=== PATIENT | male | born 1995 | race Caucasian/White ===

== ENCOUNTER 2017-05-10 14:31 | Emergency (ER) | payer OTHER ==
[2017-05-10 14:37] VITALS: BP 133/73; PULSE 52; TEMP 98.1; BMI 25.8
[2017-05-10] MEDS ORDERED: ACETAMINOPHEN 325 MG TABLET (FP) PO ONE (14:59)
--- NOTE | 2017-05-10 15:06 | PDOC ---
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 The patient states he was standing with his back towards a wood beam which was leaning against a wall. He states the wood beam fell, striking him in the head. He denies wearing a hard hat. The patient reports falling to the ground, but can not recall losing consciousness. He reports when he got off of the floor he became dizzy, noticed his nose was bleeding, and appreciated pain to the area surrounding his nose. He also reports an abrasion on his face. He states he has been consistently dizzy since the accident. He reports the nasal bleeding stopped prior to his ED arrival. He denies neck pain, back pain, or blurred vision. He denies chest pain, shortness of breath, headache. He denies fever, chills, nausea, vomit, diarrhea and constipation. He denies dysuria, frequency, urgency and hematuria. Allergies: NKDA Social history: Pt denies toxic habits <Susanna Mike - Last Filed: 05/10/17 17:07> - General Chief Complaint: Injury Stated Complaint: INJURY Time Seen by Provider: 05/10/17 14:52 Past History - Past Medical History Anemia: No Asthma: Yes Cancer: No Cardiac Disorders: No CVA: No COPD: No CHF: No Dementia: No Diabetes: No GI Disorders: No Disorders: No HTN: No Hypercholesterolemia: No Kidney Stones: No Liver Disease: No Suicide Attempt (Hx): No Seizures: No Thyroid Disease: No - Surgical History Abdominal Surgery: No Appendectomy: No Cardiac Surgery: No Cholecystectomy: No Lung Surgery: No Neurologic Surgery: No Orthopedic Surgery: No - Psycho/Social/Smoking Cessation Hx Anxiety: No Suicidal Ideation: No Smoking History: Never smoked Have you smoked in the past 12 months: Yes Number of Cigarettes Smoked Daily: 7 'Breaking Loose' booklet given: 08/17/15 Hx Alcohol Use: No Drug/Substance Use Hx: No Substance Use Type: Heroin Hx Substance Use Treatment: Yes <Joel Ewing - Last Filed: 05/10/17 16:31> <DiamantewilSusanna madden - Last Filed: 05/10/17 17:07> - Past Medical History Allergies/Adverse Reactions: Allergies Allergy/AdvReac Type Severity Reaction Status Date / Time fish derived Allergy Mild Swelling Verified 08/17/15 18:29 shellfish derived Allergy Mild Swelling Verified 08/17/15 18:29 No Known Drug Allergies Allergy Verified 08/17/15 18:29 seafood Allergy Mild Swelling Uncoded 08/17/15 17:16 Home Medications: Ambulatory Orders Albuterol Sulfate Inhaler - [Ventolin Hfa Inhaler -] 1 - 2 inh PO QID PRN Ondansetron [Zofran -] 4 mg PO TID PRN #14 tablet 05/10/17 Trauma Specific PMHX - Complaint Specific PMHX Arthritis: No <Joel Ewing - Last Filed: 05/10/17 16:31> Review of Systems - Review of Systems Able to Perform ROS?: Yes Comments:: 05/10/17 17:06 CONSTITUTIONAL: No reported: Fever, Chills, Diaphoresis, Generalized Weakness, Malaise, Loss of Appetite HEENT: (+) facial pain surrounding nose. No reported: Rhinorrhea, Nasal Congestion, Throat Pain, Throat Swelling, Difficulty Swallowing, Mouth Swelling, Ear Pain, Eye Pain, Visual Changes CARDIOVASCULAR: No reported: Chest Pain, Syncope, Palpitations, Irregular Heart Rate, Lightheadedness, Peripheral Edema RESPIRATORY: No reported: Cough, Shortness of Breath, SOB with Exertion, Orthopnea, Wheezing , Stridor, Hemoptysis GASTROINTESTINAL: No reported: Abdominal pain, Abdominal Distension, Nausea, Vomiting, Diarrhea, Constipation, Melena, Hematochezia GENITOURINARY: No reported: Dysuria, Frequency, Urgency, Hesitancy, Flank Pain, Genital Pain MUSCULOSKELETAL: No reported: Myalgia, Arthralgia, Joint Swelling, Back pain, Neck Pain SKIN: No reported: Rash, Itching, Pallor HEMEATOLOGIC/IMMUNOLOGIC: No reported: Easy Bleeding, Easy Bruising, Lymphadenopathy, Frequent infections ENDOCRINE: No reported: Unexplained Weight Gain, Unexplained Weight Loss, Heat Intolerance , Cold Intolerance NEUROLOGIC: (+) Dizziness. No reported: Headache, Focal Weakness, Paresthesias, Lightheadedness, Unsteady Gait, Seizure, Mental Status Changes, Incontinence PSYCHIATRIC: No reported: Anxiety, Depression <Susanna Mike - Last Filed: 05/10/17 17:07> *Physical Exam - Vital Signs Last Vital Signs Temp Pulse Resp BP Pulse Ox 98.1 F 52 L 18 133/73 100 05/10/17 14:34 05/10/17 14:34 05/10/17 14:34 05/10/17 14:34 05/10/17 14:34 <Joel Ewing - Last Filed: 05/10/17 16:31> - Vital Signs Last Vital Signs Temp Pulse Resp BP Pulse Ox 98.1 F 52 L 18 133/73 100 05/10/17 14:34 05/10/17 14:34 05/10/17 14:34 05/10/17 14:34 05/10/17 14:34 - Physical Exam Comments: 05/10/17 17:06 GENERAL: The patient is awake, alert, and fully oriented, Nontoxic - in no acute distress. HEAD: linear abrasion on vertex of scalp, Normocephalic, EYES: Pupils symmetric and reactive to light 3mm, extraocular movements intact, sclera anicteric, conjunctiva clear. ENT: Normal voice, Moist mucous membranes, abrasion and mild tenderness on L nasal bridge, No tenderness over periorbital region, no crepitus NECK: Normal range of motion, supple LUNGS: Breath sounds equal, clear to auscultation bilaterally. No wheezes, no rhonchi, no rales. HEART: Regular rate and rhythm, normal S1 and S2 without murmur, rub or gallop. ABDOMEN: Soft, nontender, normoactive bowel sounds. No guarding, no rebound. No CVA tenderness EXTREMITIES: Normal range of motion, no edema. No clubbing or cyanosis. No cords, erythema, or tenderness. NEUROLOGICAL: No facial assymetry, Normal speech, moving all 4 extermities spontaneously , PSYCH: Normal mood, normal affect. SKIN: Warm, Dry, normal turgor, <Susanna Mike - Last Filed: 05/10/17 17:07> ED Treatment Course - RADIOLOGY Radiology Studies Ordered: Category Date Time Status FACIAL BONES CT W/O CONTRAST [CT] Stat CT Scan 05/10/17 14:[address] WITHOUT CONTRAST [CT] Stat CT Scan 05/10/17 14:58 Ordered <Joel Ewing - Last Filed: 05/10/17 16:31> - RADIOLOGY Radiograph Interpretation: 05/10/17 16:[address] was read by Dr. Pete at 15:56 Impression: nondisplaced fracture in left side of the nasal bone extending to the midline with modrate overlying soft tissue swelling. no other frctures identified. Both orbits appear intact. Both TM joints are intact. Head CT was read by Dr. Pete Impression: No evidence of focal intracranial lesion or hemmorrhage seen.Mild ethmoid chronic sinusitis with mild deviation of nasal septum to the right and a 2cm retention cyst versus polyp in the right maxillary antrum <Susanna Mike - Last Filed: 05/10/17 17:07> Medical Decision Making - Medical Decision Making 05/10/17 15:06 21y M hx of asthma presents with head injury. The pt states a 6x6x8" peice of wood tipped over when leaning on wall and struck him on the head. Ther apperas to be LOC as th ept does not remember how he had a nasal injury. mild headache , no n/v, vision change, neck pain/back pain. will obtain ct head and facial bones to r/o fx 05/10/17 16:[address] facial bones noted for nondepressed nasal fracture will dc the pt with ashlyn ezofran pmd fu return precautions were discussed I discussed the physical exam findings, ancillary test results and final diagnoses with the patient. I answered all of the patient's questions. The patient was satisfied with the care received and felt comfortable with the discharge plan and treatment plan. The patient will call their primary care physician within 24 hours to arrange follow-up and will return to the Emergency Department with any new, persistent or worsening symptoms. <Joel Ewing - Last Filed: 05/10/17 16:31> *DC/Admit/Observation/Transfer - Discharge Dispostion Admit: No <Joel Ewing - Last Filed: 05/10/17 16:31> - Attestations Scribe Attestion: 05/10/17 17:07 Documentation prepared by Susanna Miek, acting as medical dosimetrist for Joel Ewing MD, <Susanna Mike - Last Filed: 05/10/17 17:07> Diagnosis at time of Disposition: Nasal bone fracture Qualifiers: Encounter type: initial encounter Fracture type: closed Qualified Code(s): S02.2XXA - Fracture of nasal bones, initial encounter for closed fracture Head injury Qualifiers: Encounter type: initial encounter Qualified Code(s): S09.90XA - Unspecified injury of head, initial encounter - Discharge Dispostion Disposition: HOME Condition at time of disposition: Improved - Prescriptions Prescriptions: Ondansetron [Zofran -] 4 mg PO TID PRN #14 tablet PRN Reason: Nausea - Referrals Referrals: Kirill Kurtz MD [Staff Physician] - - Patient Instructions Printed Discharge Instructions: DI for Closed Head Injury, DI for Nose Fracture Additional Instructions: Return to the emergency department immediately with ANY new, persistent or worsening symptoms. Take zofran if you have any nausea. Take tylenol for headache. You MUST call and follow up with your doctor tomorrow for further evaluation of your symptoms. Results were discussed with you. Please make sure your doctor reviews the results of your emergency evaluation.
[2017-05-10] MEDS ORDERED: ONDANSETRON 4 MG TABLET PO ONE (16:25)
== END 2017-05-10 16:54 | disposition home or self-care (01) ==
LOC: JER 14:31
DX: S02.2XXA Fracture of nasal bones, initial encounter for closed fracture (principal); S00.01XA Abrasion of scalp, initial encounter; W20.1XXA Struck by object due to collapse of building, initial encounter; Y93.H3 Activity, building and construction; Y92.61 Building [any] under construction as the place of occurrence of the external cause; Y99.0 Civilian activity done for income or pay
CPT/HCPCS: 70450-TC; 70486-TC; 99282-25